=== PATIENT | female | born 1935 | race Caucasian/White ===

== ENCOUNTER 2022-06-05 10:21 | Day surgery (SDC) | payer OTHER, BC ==
[2022-06-02 16:36] VITALS: BMI 21.1
[2022-06-05] MEDS: PHENYLEPHRINE 2.5% OPHTH SOLN 15 ML BOTTLE ONE ×3 (10:55→11:05)
[2022-06-05] MEDS: TROPICAMIDE 1% OPHTH SOLN 15 ML BOTTLE ONE ×3 (10:55→11:05)
[2022-06-05] MEDS: CIPROFLOXACIN 0.3% EYE DROPS 5 ML BOTTLE ONE ×3 (10:55→11:05)
[2022-06-05] MEDS: CYCLOPENTOLATE 2% OPHTH SOLN 2 ML BOTTLE ONE ×3 (10:55→11:05)
[2022-06-05] MEDS ORDERED: EPINEPHrine/PF 1 MG/1 ML (1:1,000) AMPULE ONE (11:30)
[2022-06-05] MEDS ORDERED: BSS (NA/CA/MG/K) BALANCED SALT SOLUTION OPHTH SOLN 15 ML BOTTLE ONE (11:30)
[2022-06-05] MEDS ORDERED: TETRACAINE 0.5% OPHTH SOLN 2 ML BOTTLE ONE (11:30)
[2022-06-05] MEDS ORDERED: LIDOCAINE 1% P/F 10 MG/ML VIAL ONE (11:30)
[2022-06-05] MEDS ORDERED: NEO/POLYMYX B SULF/DEXAMETH OPHTHALMIC 5ML BOTTLE ONE (11:30)
[2022-06-05] MEDS ORDERED: CARBACHOL 0.01% INTRA-OCULAR 1.5 ML VIAL ONE (11:30)
[2022-06-05] MEDS ORDERED: MIDAZOLAM HCL 2 MG/2 ML SINGLE DOSE VIAL ONE (11:42)
[2022-06-05 12:16] VITALS: TEMP 97.8
[2022-06-05 14:06] VITALS: BP 108/61; PULSE 64
== END 2022-06-05 12:40 | disposition home or self-care (01) ==
LOC: FASU 10:21
PROVIDERS: ATTEND Ophthalmology
PROC: 08RJ3JZ Replacement of Right Lens with Synthetic Substitute, Percutaneous Approach (ICD-10-PCS; principal; 2022-06-05 11:47)
DX: H26.8 Other specified cataract (principal)
CPT/HCPCS: 66984; V2632